=== PATIENT | male | born 1990 | race Caucasian/White ===

== ENCOUNTER 2017-02-24 10:50 | Emergency (ER) | payer BC ==
[~2017-02-24] VITALS: Ht 162.6 cm; Wt 93.1 kg
[~2017-02-24 10:50] MED LIST: ACET-62 PO; CYCL-375 PO; CYCL5TAB PO; IBUP-1547 PO; METH4TAB3 PO; [UNRECOGNIZED DRUG - REMARK]
[2017-02-24 10:52] VITALS: BP 147/79; TEMP 97.6; Ht 162.6 cm; Wt 93.1 kg
--- OUTSIDE RECORDS SUMMARY | 2017-02-24 10:53 | XMS REPORT | Continuity of Care Document ---
Author Author [facility] Organization [facility] Address Unknown Phone Unavailable Allergies Medications Problems Procedures Results Encounters ACCT No. Visit Date/Time Discharge Status Pt. Type Provider Facility Loc./Unit Complaint [id number] 01/22/2014 11:05:00 01/22/2014 23 :59:59 CLS Outpatient [id number] 09/28/2013 13:37:00 09/28/2013 23 :59:59 CLS Outpatient
--- OUTSIDE RECORDS SUMMARY | 2017-02-24 10:53 | XMS REPORT | Continuity of Care Document ---
Author Author [facility] Organization [facility] Address Unknown Phone Unavailable Support Name Relationship Address Phone HOLDEN KEN DO Caregiver [address] [place] [address] Unavailable JAUN IQBAL MD Caregiver [address] [place] [address] Unavailable NAVEED BREWER Next Of Kin [address] [place] [address] Insurance Providers Guarantor Brice Salmeron Address [address] [place] [address] Email DENIED 17 [employer] Other Policy Number [id number] Subscriber's Name Brice Salmeron Relationship 18 Self Group Number [id number] Advance Directives Directive Response Recorded Date/Time Advanced Directives Type None 02/18/17 3:45pm Chief Complaint and Reason for Visit Chief Complaint Lower Extremity Pain Reason for Visit Sciatica of right side Problems Past Problems Medical Problem Onset Date Sciatica of right side Unknown Medications Current Home Medications Medication Dose Units Route Directions Days Qty Instructions Start Date Acetaminophen 500 Mg Tablet 1,000 Mg Oral Every 8 Hours as needed for Pain 11/01/15 Cyclobenzaprine Hcl 5 Mg Tablet 1 Tab Oral Three Times A Day for Spasms 15 Tablet MAY CAUSE DROWSINESS OR DIZZINESS 02/18/17 Cyclobenzaprine Hcl 10 Mg Tablet 1 Tab Oral Three Times A Day as needed for Muscle Pain 15 Tablet 11/01/15 Ibuprofen 800 Mg Tablet 1 Tab Oral Every 8 Hours as needed for Pain 30 Tablet 02/18/17 Methylprednisolone (Medrol) 4 Mg Tab.ds.pk 4 Mg Oral As Directed for Inflamation 1 Pack 02/18/17 Social History Social History Problem Response Recorded Date/Time Onset Date Status Hx Substance Use No 02/18/2017 3:55pm Not Applicable Not Applicable Hx Alcohol Use Y OCCAS 02/18/2017 3:55pm Not Applicable Not Applicable Tobacco Usage none 11/01/2015 10:50pm Not Applicable Not Applicable Query Response Start Date Stop Date Smoking Status Never smoker Hospital Discharge Instructions No hospital discharge instructions. Plan of Care Discharge Date 02/18/17 5:08pm Disposition 01 DISCHARGED HOME, SELF-CARE Condition at Discharge Improved Instructions/Education Provided Sciatica (ED) Prescriptions See Medication Section Referrals JAUN IQBAL MD Order Date: 1 Day Address: [address] [place] [address] BETY PATRICK [phone] Note: Care Plan and Goals Physician Care Plan Problem: 1. Sciatica Goal: 1. Follow up with primary care provider in 1-2 days 2. 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 Return to the ER with worsening symptoms Instructions: 1. Take medications and follow care plan as discussed/written Functional Status No functional status results. Allergies, Adverse Reactions, Alerts No known allergies. Immunizations Query Response on File Recorded Date/Time Influenza Vaccine Hx NO 02/18/17 3:56pm Vital Signs Acute Vital Signs Vital Response Date/Time Temperature (Fahrenheit) 97.3 deg F (96.8 - 99.1) 02/18/2017 5:08pm Temperature (Calculated Celsius) 36.53402 degrees C (36.0 - 37.3) 02/18/2017 5:08pm Pulse Rate (adult) 62 bpm (60 - 100) 02/18/2017 5:08pm Respiratory Rate 18 breaths/min (10 - 20) 02/18/2017 5:08pm O2 Sat by Pulse Oximetry 97 % (90 - 100) 02/18/2017 5:08pm Blood Pressure 142/73 mm Hg 02/18/2017 5:08pm Height (Feet) 5 feet 02/18/2017 3:45pm Height (Inches) 4.00 inches 02/18/2017 3:45pm Weight (Kilograms) 94.300 kg 02/18/2017 3:45pm Body Mass Index (BMI) 35.0 02/18/2017 3:45pm Results Name: BRICE SALMERON Unit #: [id number] : 1990 Sex: M Admit Date: Loc / Svc: ED Discharge Date: DIAGNOSTIC IMAGING REPORT Report #: [id number] [facility] BETY Ruiz Indication: ITS.REASON: low back pain PROCEDURE: LUMBAR SPINE 2-3 VIEWS: Encounter: Initial Comparison: None. Findings: There is mild straightening of the normal lordotic curve which may suggest some element of paraspinous muscle spasm. The vertebral body heights and the alignments appear well preserved. The mineralization appears well-preserved. There is no significant degenerative disc changes of the lower lumbar spine with mild degenerative disc changes of the thoracolumbar junction. Impression: Mild straightening of the normal lordotic curve which may suggest some element of paraspinous muscle spasm. . Procedures No known history of procedures. Encounters Encounter Location Arrival/Admit Date Discharge/Depart Date Attending Provider Departed Emergency Room [facility] 02/18/17 3:37pm 02/18/17 5: 08pm HOLDEN KEN DO Recent Diagnosis
--- NOTE | 2017-02-24 10:59 | NUR ---
REPORT TO MIHCAEL GONZALEZ
--- NOTE | 2017-02-24 11:52 | NUR ---
PROVIDER DR GUDINO IN TO SEE PATIENT.
[2017-02-24] MEDS ORDERED: KETOROLAC 60mg/2ml INJECTION IM ONE (12:00)
[2017-02-24] MEDS ORDERED: HYDROMORPHONE 2mg/ml INJECTION IM ONE (12:00)
--- NOTE | 2017-02-24 12:02 | ERPDOC ---
Departure Disposition Decision Date: Feb 24, 2017 Disposition Decision Time: 12:02 Disposition: 01 DISCHARGED HOME, SELF-CARE Impression Impression: 1) LOW BACK PAIN 2) SCIATICA Impression: Primary Impression: Back strain Encounter type: subsequent encounter Qualified Codes: S39.012D - Strain of muscle, fascia and tendon of lower back, subsequent encounter Additional Impression: Sciatica Laterality: right Qualified Codes: M54.31 - Sciatica, right side Condition: Stable Seen By: Physician only Referrals: JAUN IQBAL MD (Family) 3 Days FOLLOW UP IN NEXT 3-5 DAYS FOR RE-EVALUATION AND FURTHER TESTING OR TREATMENT Patient Instructions: Acute Low Back Pain (ED), Low Back Strain (ED), Lower Back Exercises (ED) Problems/Meds/Labs Reviewed?: Yes Medications reviewed and manag: Yes Additional Instructions: 1) AVOID HEAVY LIFTING FOR NEXT 1 WEEK 2) CONTINUE WITH MEDROL DOSE PACK PRESCRIBED 02/18/17 UNTIL GONE 3) MAY TAKE FLEXERIL 10 MG BY MOUTH THREE TIMES A DAY FOR MUSCLE SPASM 4) MAY TAKE NORCO 5/325 ONE OR TWO EVERY SIX HOURS NEEDED FOR SEVERE PAIN 5) FOLLOW UP WITH DR. IQBAL OR DR. RIZZO (WHICHEVER IS YOUR PCP) IN NEXT 3-5 DAYS FOR RE-EVALUATION AND FURTHER TESTING OR TREATMENT. PLEASE CONTACT THE OFFICE ON SATURDAY. Departure Forms: Return to Work/School Permit Return to Work/School Date: February 27, 2017 Restrictions: AVOID LIFTING MORE THAN 10 LBS FOR 1 WEEK Follow up care ordered?: Yes Mental Status: Alert, Oriented Scripts Hydrocodone/Acetaminophen ([place] 5-325 Tablet) 5-325 Tablet 1-2 TAB PO Q6H for PAIN, #30 TAB 0 Refills Prov: KIRILL FOWLER MD 02/24/17 Cyclobenzaprine HCl (Cyclobenzaprine HCl) 10 Mg Tablet 1 TAB PO TID, #21 TAB 0 Refills Prov: KIRILL FOWLER MD 02/24/17 HPI - Back Pain General Chief Complaint: Low Back Pain or Injury Stated Complaint: PAIN IN LOWER BACK AND R LEG Time Seen by Provider: 11:49 Source: patient HPI - Back Pain Initial Comments 26 YO HM who presents to ER for exacerbation of back pain. Patient was evaluated in ER on 02/18/17 for same problem and treated with steroids, muscle relaxer and pain medication. By , 02/21/17, he felt much better and returned to work Saturday. He lifted some heavy boxes at work and reports the "pain came back." Pain is located on the right side and radiates down into his right buttock and the back of his leg. Patient denies loss of control of bowel or bladder. No numbness or weakness in legs. PATIENT RAN OUT OF PAIN MEDICATION AND MUSCLE RELAXERS YESTERDAY. Pain/Severity Scale: Now & Worst: 10/10 Severity/Quality: severe Location: paraspinous muscles (lumbar area) 1 - area of low back pain 2 - radiation down back of leg Method of Injury/Context: twisted, other (lifting at work) Associated Sypmtoms: lower back pain, muscle spasms, DENIES: fever, loss of bladder control, loss of bowel control, numbness in legs/feet, sensory/motor loss, tingling in legs/feet, weakness Allergies: Coded Allergies: No Known Allergies (Unverified , 02/24/17) Past History Past Medical History Pt denies signifigant PMH Surgical History Denies Surgeries Family History Family History Comments Non-contributory Social History Does patient use chewing tobac: No Second Hand Exposure: No Substance Use Type: does not use Alcohol Intake: none Marital Status: Sexuality: female partner Housing: house Household Members: spouse Service: No Current Occupational Status: employed Occupational Hazard: No Advance Directives: Yes Full Code Review of Systems Constitutional Constitutional: DENIES: appetite decrease, chills, dizziness, fever, syncope, weakness Eyes General: DENIES: erythema, exudate, photophobia Vision: DENIES: blurring ENMT Sinuses: DENIES: congestion Nose: DENIES: nosebleeds Mouth/Throat: DENIES: change in swallowing, painful swallowing, sore throat Cardiovascular Cardiac: DENIES: chest pain, dyspnea on exertion Rhythm/Rate: DENIES: irregular beat, palpitations Pulmonary Respiratory: DENIES: cough, dyspnea, pleuritic chest pain GI Upper Abdomen: DENIES: nausea, vomiting Lower Abdomen: DENIES: constipation, diarrhea General: DENIES: burning, dysuria, frequency, pain, urgency Musculoskeletal General: see HPI Integumentary Skin: DENIES: rash Neurological General: DENIES: seizures, syncope Hematologic/Lymphatic Hematologic/Lymphatic: DENIES: anemia, bleeding gums, easy bruising Physical Exam General Vitals and Pain First Documented Vital Signs Date Time Temp Pulse Resp B/P Pulse Ox O2 Delivery O2 Flow Rate FiO2 02/24/17 10:52 97.6 73 20 147/79 95 Room Air Weight: Kilograms: 93.100 Height (feet): 5 Height (inches): 4.00 Triage Pain Scale: Normal Exams: Head: Normocephalic w/o trauma Eyes: Pupils are PERRLA w/ EOMI, No scleral icterus Chest/Resp: Clear all valles, with good airflow, and symmetry bilaterally CV: Regular rate and rhythm, without murmur or gallop, Pulses 2+ all extremities, capillary refill Abdomen: Bowel sounds positive, soft, non-tender, non-distended, no hepatosplenomegaly Lymphatic: No lymphadenopathy, or lymphedema noted Integumentary: No rashes, hives, or bruising noted, hair and nails Neurologic: Patient is alert, and oriented, cranial nerves, motor/sensory/ cerebellar, exams w/o gross deficits Psychiatric: Patient exhibits, appropriate attention, emotion and affect Musculoskeletal Back: FOUND: spasm (right lumbar paraspinous muscles), tenderness (right lower paraspinous muscles), NOT FOUND: spine point tenderness Neurologic Mental Status: FOUND: alert, oriented GCS Adult : GCS Eye Opening: (4)Spontaneous GCS Verbal: (5)Oriented GCS Motor: (6)Obeys Commands GCS Total: 15 Cranial Nerves: FOUND: extraocular movements (intact bilaterally), forehead movement (intact and equal bilaterally), shoulder shrug (intact bilaterally), NOT FOUND: facial asymmetry Motor : Motor Side: bilateral Motor Location: quadriceps, hamstring, foot extension, foot flexion Motor Degree: 5 Sensation: FOUND: position sense intact, sharp intact, soft touch intact x4 ext DTR's : DTR Side: bilateral DTR Location: Patellar, Achilles DTR Grade: 2+ Differential Diagnoses Considering: Disc Herniation, Lumbar Sprain, Lumbar Strain, Other (Muscle spasm ) Progress Results/Orders Orders Procedure Category Date Status Time Ketorolac (Toradol) PHA 02/24/17 Complete 12:00 Hydromorphone PHA 02/24/17 Complete (Dilaudid) 12:00 Medications Current ED Medications Ketorolac Tromethamine (Toradol) 60 mg O ONCE IM Last administered on t 12:03; Start 02/24/17 at 12:00; Stop 02/24/17 at 12:01; Status DC Hydromorphone HCl (Dilaudid) 1 mg O ONCE IM Last administered on 02/24/17t 12: 03; Start 02/24/17 at 12:00; Stop 02/24/17 at 12:01; Status DC KIRILL FOWLER MD Feb 24, 2017 12:02
[2017-02-24] MEDS ORDERED: HYDR-4246 PO (12:09)
[2017-02-24] MEDS ORDERED: CYCL-375 PO (12:09)
[2017-02-24 12:19] VITALS: PULSE 62; RESP 16; O2SAT 98
--- OUTSIDE RECORDS SUMMARY | 2017-02-24 12:20 | XMS REPORT | Continuity of Care Document ---
Author Author [facility] Organization [facility] Address Unknown Phone Unavailable Allergies Medications Problems Procedures Results Encounters ACCT No. Visit Date/Time Discharge Status Pt. Type Provider Facility Loc./Unit Complaint [id number] 01/22/2014 11:05:00 01/22/2014 23 :59:59 CLS Outpatient [id number] 09/28/2013 13:37:00 09/28/2013 23 :59:59 CLS Outpatient
== END 2017-02-24 12:19 | disposition home or self-care (01) ==
LOC: MERGE 10:50 → ED 10:50
DX: S39.012D Strain of muscle, fascia and tendon of lower back, subsequent encounter (principal); X50.0XXD Overexertion from strenuous movement or load, subsequent encounter; M54.41 Lumbago with sciatica, right side
CPT/HCPCS: 96372; 99283; J1170; J1885

== ENCOUNTER → 2017-02-28 | Outpatient (CLI) | payer BC ==
[~2017-02-28] MED LIST changes: +HYDR-4246 PO
--- NOTE | 2017-02-28 12:05 | DI ---
Indication: ITS.REASON: M54.5 LOW BACK PAIN with right leg pain and numbness after recent injury PROCEDURE: MRI LUMBAR SPINE W/O CONTRAST: Encounter: Initial Comparison: None Technique: Multiplanar multisequence MR imaging of the lumbar spine was performed without contrast. Findings: Alignment of the lumbar spine is slightly straightened with loss of the normal lordosis. No acute fracture identified. Bone marrow signal intensity is normal. There is disk desiccation with annular tear is noted at the L4-L5 and L5-S1 discs. Conus medullaris terminates normally at T12-L1. The paraspinal soft tissues are unremarkable. Segmental analysis: L1-L2: Normal L2-L3: Normal L3-L4: Normal L4-L5: Left central disk protrusion resulting in mild central canal stenosis and left lateral recess narrowing. No significant neural foraminal stenosis on the left however. Mild degenerative facet disease contributing to mild right neural foraminal narrowing. L5-S1: Right central and foraminal disk protrusion. This displaces the traversing right S1 nerve roots and effaces the right lateral recess with mild central canal narrowing. Mild right foraminal narrowing. No significant left foraminal stenosis. Impression: Disk protrusions at L4-L5 and L5-S1 with right-sided nerve root impingement. .
== END ==
LOC: IMA 09:57 → MERGE 10:30
PROVIDERS: ATTEND Family Medicine
DX: M51.16 Intervertebral disc disorders with radiculopathy, lumbar region (principal); M51.17 Intervertebral disc disorders with radiculopathy, lumbosacral region; M54.5 Low back pain